=== PATIENT | male | born 1955 | race African-American/Black ===

== ENCOUNTER 2016-08-12 01:39 | Emergency (ER) | payer OTHER ==
[2016-08-12] MEDS ORDERED: Ondansetron HCl/PF 4 MG/2 ML Vial ONE (02:29)
[2016-08-12] MEDS ORDERED: Meclizine HCl 25 MG TAB ONE (02:29)
[2016-08-12 02:35] LABS: #Basophils 0.1 thou/uL (0.0-0.2); #Eosinphils 0.2 thou/uL (0.0-0.7); #Lymphocytes 2.5 thou/uL (1.20-3.40); #Monocytes 0.7 thou/uL (0.11-0.59); #Neutrophils 3.6 thou/uL (1.40-6.50); %Eosinophils 2.2 % (0.0-10.0); %Lymphocytes 35.4 % (21.0-51.0); %Neutrophils 51.4 % (42.0-75.0); Hemoglobin 15.9 g/dL (14.0-18.0); Mean Corpuscular HGB CONC 32.8 g/dL (32.0-36.0); Mean Corpuscular Hemoglobin 29.6 pg (27.0-31.0); Mean Corpuscular Volume 90.2 fl (80.0-94.0); Platelet Count 243 thou/uL (130-400); RBC Distribution Width 13.1 % (11.5-14.5); Red Blood Cell (RBC) Count 5.38 mill/uL (4.70-6.10)
[2016-08-12 02:54] LABS: ALT (SGPT) 41 U/L (0-55); AST (SGOT) 35 U/L (5-34); Albumin 4.1 g/dL (3.4-4.8); Alkaline Phosphatase 78 U/L (40-150); Anion Gap 16 mmol/L (10-20); BUN (Urea Nitrogen) 18 mg/dL (8.4-25.7); Bilirubin, Total 0.6 mg/dL (0.2-1.2); CK (CPK) 160 U/L (30-200); Calc. Creatinine Clearance 0 mL/min (70-130); Calcium 10.1 mg/dL (7.8-10.44); Carbon Dioxide 26 mmol/L (23-31); Chloride 100 mmol/L (98-107); Estimated GFR-MDRD 72; Globulin 3.4 g/dL (2.4-3.5); Glucose 111 mg/dL (80-115); Potassium 3.8 mmol/L (3.5-5.1); Protein, Total 7.5 g/dL (5.8-8.1); Sodium 138 mmol/L (136-145)
[2016-08-12 02:54] LABS: Bilirubin Negative (Negative); Blood, Urine Negative (Negative); Clarity Clear (Clear); Glucose, Urine (Dipstick) >=1000 mg/dL (Negative); Leukocyte Negative (Negative); Nitrite Negative (Negative); Protein, Urine (Dipstick) Negative (Neg-Trace); Specific Gravity, Urine 1.015 (1.005-1.030); pH, Urine 5.5 (5.0-9.0)
[2016-08-12 02:58] LABS: CKMB 1.5 ng/mL (0-6.6); Troponin I Less than 0.010 ng/mL (< 0.028)
--- NOTE | 2016-08-12 04:13 | ERRECORD ---
[facility] EMERGENCY RECORD HPI WEAK-DIZZY (02:23 LLDO) CHIEF COMPLAINT: Patient presents for evaluation of weakness, Patient presents for evaluation of dizziness, Patient presents for evaluation of lightheadedness, Denies mental status changes, Patient presents for evaluation of pt was driving from [place] to [place] and began feeling dizzy, sob and lightheaded. he stopped at a truck stop here in town and asked for the nearest hospital. says he was dizzy, lightheaded ans somewhat short of breath at that time. feels better now but still moderately dizzy when he moves. has not had this problem before. no trauma. denies any pain, uti or uri sx. HISTORIAN: History provided by patient, pt has a cardiac and diabetic hx and was concerned about further travel w/o being evaluated. LOCATION: Symptoms are generalized. QUALITY: Patient is alert and oriented to person, place and time, [place] coma score is 15. SEVERITY: Maximum severity of symptoms moderate, Currently symptoms are mild. TIME COURSE: Sudden onset of symptoms, Symptoms are improving, are constant. ASSOCIATED WITH: Associated with nausea. EXACERBATED BY: Patient's condition exacerbated by movement. RELIEVED BY: Patient's condition relieved by time. ROS CONSTITUTIONAL: Historian reports fatigue. (02:00 LLDO) EYES: Negative eye review of systems, Historian denies eye pain, denies eye redness, denies eye discharge. (02:02 LLDO) ENT: Negative ears, nose, throat review of systems, Historian denies otalgia, denies rhinorrhea, denies sinus pain, denies sore throat. (02:02 LLDO) CARDIOVASCULAR: Negative cardiovascular review of systems, Historian denies chest pain, no radiation, Historian denies diaphoresis, denies paroxysmal nocturnal dyspnea, denies syncope. (02:02 LLDO) RESPIRATORY: Historian reports shortness of breath. (02:00 LLDO) GI: Historian reports nausea. (02:00 LLDO) MUSCULOSKELETAL: Negative musculoskeletal review of systems, Historian denies arthralgias, denies fall, denies injury, denies myalgias. (02:02 LLDO) NEUROLOGIC: Historian reports dizziness. (02:00 LLDO) HEMO/LYMPHATIC: Normal hematologic/lymphatic system review, Historian denies abnormal blood clotting, denies gum bleeding, denies petechiae. (02:02 LLDO) ALLERGIC/IMMUNOLOGIC: Normal allergy/immunologic system review, Historian denies eczema, denies environmental allergies, denies food allergies. (02:02 LLDO) PSYCHIATRIC: Negative psychiatric review of systems, Historian denies alcohol abuse, denies anxiety, denies depression, denies drug &a-1R&a+25V*p+0X*[id number]*c202B*c15G*c2P*p-0X&a-25V&a+1R Name: Vipul Ryan : 1955 M61 MedRec: [id number] AcctNum: [id number] Prepared: FriAug 12, 2016 04:17 by Interface Page 1 of 4 pMD [facility] EMERGENCY RECORD abuse, denies hallucinations. (02:02 LLDO) NOTES: All systems reviewed, negative except as described above. (02:00 LLDO) PAST MEDICAL HISTORY MEDICAL HISTORY: Notes: htn, high cholesterol, dm. (01:50 JDEA) MALE SURGICAL HISTORY: stents x 4, pacemaker, back sx. (01:50 JDEA) PSYCHIATRIC HISTORY: No previous psychiatric history. (01:50 JDEA) SOCIAL HISTORY: Patient denies alcohol use, Patient denies drug use, Patient currently uses tobacco, smokes cigarettes, Lives at home, with family. (01:50 JDEA) NOTES: Nursing records reviewed, Agree with nursing records, Medication list reviewed. (02:02 LLDO) KNOWN ALLERGIES NKDA CURRENT MEDICATIONS atorvastatin: TABLET : Strength - 20 mg : ORAL Patient Dose: 20 mg Oral once a day (at bedtime). (01:50 JDEA) valsartan-hydrochlorothiazide: TABLET : Strength - 160 mg-25 mg : ORAL Patient Dose: 1 tab(s) Oral once a day. (01:51 JDEA) Eliquis: TABLET : Strength - 5 mg : ORAL Patient Dose: 1 tab(s) Oral 2 times a day (before meals). (01:52 JDEA) glipiZIDE-metformin: TABLET : Strength - 5 mg-500 mg : ORAL Patient Dose: 1 tab(s) Oral 2 times a day (before meals). (01:52 JDEA) Toprol XL: TABLET, EXTENDED RELEASE 24 HR : Strength - 100 mg : ORAL Patient Dose: 1 tab(s) Oral 2 times a day (before meals). (01:53 JDEA) Farxiga: TABLET : Strength - 10 mg : ORAL Patient Dose: 1 tab(s) Oral 2 times a day (before meals). (01:53 JDEA) VITAL SIGNS VITAL SIGNS: BP: 143/81, Pulse: 66, Resp: 18, Temp: 98.2 (Oral), Pain: 0, O2 sat: 97 on Room Air, Time: 08/12/2016 01:45. (01:45 JDEA) BP: 140/80, Pulse: 62, Resp: 18, Pain: 0, O2 sat: 96 on Room Air, Time: 08/12/2016 03:20. (03:20 JDEA) &a-1R&a+25V*p+0X*p4280M*c202B*c15G*c2P*p-0X&a-25V&a+1R Name: Vipul Ryan : 1955 M61 MedRec: [id number] AcctNum: [id number] Prepared: FriAug 12, 2016 04:17 by Interface Page 2 of 4 pMD [facility] EMERGENCY RECORD BP: 140/68, Pulse: 62, Resp: 20, Temp: 98.2, Pain: 0, O2 sat: 99 on RA, Time: 08/12/2016 04:11. (04:11 JDEA) PHYSICAL EXAM CONSTITUTIONAL: Vital signs reviewed, Patient afebrile, Pulse normal, Blood pressure normal, Respiratory rate normal, Patient appears non toxic, Patient appears pain free, Patient alert and oriented to person, place and time. (02:01 LLDO) HEAD: Head exam normal, Head exam included findings of head atraumatic, normocephalic. (02:02 LLDO) EYES: Eye exam normal, Eye exam included findings of eyelids normal to inspection, Pupils equally round and reactive to light, Extraocular muscles intact. (02:02 LLDO) ENT: ENT exam normal, Ear exam normal, Nose exam normal. (02:02 LLDO) NECK: Neck exam normal, Neck exam included findings of normal range of motion, Trachea midline, no meningeal signs, no tenderness. (02:02 LLDO) RESPIRATORY CHEST: PACEMAKER BUMP LEFT UPPER CHEST. (02:01 LLDO) CARDIOVASCULAR: Cardiovascular exam included findings of, rate normal, rhythm occasionally irregular, Heart sounds normal. (02:01 LLDO) ABDOMEN MALE: Abdominal exam normal, Abdominal exam included findings of abdomen nontender, Bowel sounds normal, no peritoneal signs. (02:02 LLDO) BACK: Back exam normal, Back exam included findings of normal inspection, range of motion normal. (02:02 LLDO) UPPER EXTREMITY: Upper extremity exam normal, Upper extremity exam included findings of inspection normal, Range of motion normal. (02:02 LLDO) LOWER EXTREMITY: Lower extremity exam normal, Lower extremity exam included findings of inspection normal, Range of motion normal. (02:02 LLDO) NEURO: Neuro exam normal, Neuro exam findings include patient oriented to person, place and time, Speech normal, [place] coma scale 15. (02:02 LLDO) SKIN: Skin exam normal, Skin exam included findings of skin warm, dry, and normal in color, no rash. (02:02 LLDO) PSYCHIATRIC: Psychiatric exam normal, Psychiatric exam included findings of patient oriented to person place and time, Normal affect, Judgment normal. (02:02 LLDO) MEDICATION ADMINISTRATION SUMMARY Drug Name: Zofran intravenous, Dose Ordered: 8 mg, Route: IV Push, Status: Given, Time: 08/12/2016, Drug Name: Antivert/25, Dose Ordered: 25 mg, Route: Oral, Status: Given, Time: 08/12/2016, Detailed record available in Medication Service section. &a-1R&a+25V*p+0X*[id number]*c202B*c15G*c2P*p-0X&a-25V&a+1R Name: Vipul Ryan Kavitha : 1955 M61 MedRec: [id number] AcctNum: [id number] Prepared: FriAug 12, 2016 04:17 by Interface Page 3 of 4 pMD [facility] EMERGENCY RECORD PROBLEM LIST No recorded problems DIAGNOSIS (04:02 LLDO) FINAL: PRIMARY: LABYRINTHITIS UNSPECIFIED EAR. PRESCRIPTION (04:03 LLDO) Antivert/25: TABLET : 25 mg : ORAL : Quantity: 1-2 Unit: tab(s) Route: ORAL Schedule: every 6 hours PRN Dispense: 15 Unit: tab(s) May substitute. Refills: 1 . NOTES: No Refills. DISPOSITION PATIENT: Disposition Type: Discharge, Disposition: *Discharge Home. (04:02 JUANY) Patient left the department. (04:12 ED) Bello: ED=JANELLE Yoder, Janel HARRINGTON=MD Evaristo, Jose R &a-1R&a+25V*p+0X*[id number]*c202B*c15G*c2P*p-0X&a-25V&a+1R Name: RyanVipul : 1955 M61 MedRec: [id number] AcctNum: [id number] Prepared: FriAug 12, 2016 04:17 by Interface Page 4 of 4 pMD MTDD
--- NOTE | 2016-08-12 04:13 | PICIS ---
[facility] EMERGENCY RECORD TRIAGE (FriAug 12, 2016 01:47 JDEA) TRIAGE NOTES: pt states that he is dizzy and would like to be checked out so he can go to [place], states this has been going on since today. (FriAug 12, 2016 01:47 JDEA) PATIENT: NAME: Vipul Ryan, AGE: 61, GENDER: male, : [facility] 1955, TIME OF GREET: FriAug 12, 2016 01:40, PREFERRED LANGUAGE: French, ETHNICITY: Not or , ECODE BILLING MAP: [facility], SSN: [id number], Zip Code: [address], KG WEIGHT: 100.70, PHONE: , , , PERSON ID: [id number], PCP: out of town. (FriAug 12, 2016 01:47 JDEA) COMPLAINT: DIZZINESS. (FriAug 12, 2016 01:47 JDEA) ADMISSION: URGENCY: 2 Emergent, ADMISSION SOURCE: Home, TRANSPORT: Walk-in, BED: TRIAGE. (FriAug 12, 2016 01:47 JDEA) IMMUNIZATIONS: Flu vaccine not up to date, Tetanus immunization up to date, Pneumococcal vaccine not up to date. (01:50 JDEA) TRIAGE SCREENING: Patient denies suicidal ideation, Patient denies presence of domestic violence. (01:50 JDEA) PROVIDERS: TRIAGE NURSE: Janel Yoder RN. (FriAug 12, 2016 01:47 JDEA) VITAL SIGNS: BP 143/81, Pulse 66, Resp 18, Temp 98.2, (Oral), Pain 0, O2 Sat 97, on Room Air, Time 08/12/2016 01:45. (01:45 JDEA) KNOWN ALLERGIES NKDA CURRENT MEDICATIONS atorvastatin: TABLET : Strength - 20 mg : ORAL Patient Dose: 20 mg Oral once a day (at bedtime). (01:50 JDEA) valsartan-hydrochlorothiazide: TABLET : Strength - 160 mg-25 mg : ORAL Patient Dose: 1 tab(s) Oral once a day. (01:51 JDEA) Eliquis: TABLET : Strength - 5 mg : ORAL Patient Dose: 1 tab(s) Oral 2 times a day (before meals). (01:52 JDEA) glipiZIDE-metformin: TABLET : Strength - 5 mg-500 mg : ORAL Patient Dose: 1 tab(s) Oral 2 times a day (before meals). (01:52 JDEA) Toprol XL: TABLET, EXTENDED RELEASE 24 HR : Strength - 100 mg : ORAL Patient Dose: 1 tab(s) Oral 2 times a day (before meals). (01:53 JDEA) Farxiga: TABLET : Strength - 10 mg : ORAL Patient Dose: 1 tab(s) Oral 2 times a day (before meals). &a-1R&a+25V*p+0X*c0005M*c202B*c15G*c2P*p-0X&a-25V&a+1R Name: Vipul Ryan : 1955 M61 MedRec: [id number] AcctNum: [id number] Prepared: FriAug 12, 2016 04:24 by Interface Page 1 of 11 pMD [facility] EMERGENCY RECORD (01:53 JDEA) VITAL SIGNS VITAL SIGNS: BP: 143/81, Pulse: 66, Resp: 18, Temp: 98.2 (Oral), Pain: 0, O2 sat: 97 on Room Air, Time: 08/12/2016 01:45. (01:45 JDEA) BP: 140/80, Pulse: 62, Resp: 18, Pain: 0, O2 sat: 96 on Room Air, Time: 08/12/2016 03:20. (03:20 JDEA) BP: 140/68, Pulse: 62, Resp: 20, Temp: 98.2, Pain: 0, O2 sat: 99 on RA, Time: 08/12/2016 04:11. (04:11 JDEA) NURSING ASSESSMENT: CARDIOVASCULAR (02:39 JDEA) CONSTITUTIONAL: Complex assessment performed, Patient arrives ambulatory, Gait steady, History obtained from patient, Patient appears comfortable, Patient cooperative, Patient alert, Oriented to person, place and time, Skin warm, Skin dry, Skin normal in color, Mucous membranes pink, Mucous membranes moist, Patient complains of dizziness, pt in, states that he has been having episodes of dizziness since today, states that he is unsure of his blood glucose level and has cardiac stents and would like to be evaluated and then discharged to finish his drive to [facility]. states he is not in pain, however he feels unwell. PAIN: denies pain at this time. CARDIOVASCULAR: Cardiovascular assessment findings include heart rate normal, Heart rhythm, paced, Heart sounds normal, S1, S2, Left radial pulse +3(easily palpated, considered normal), Right radial pulse +3(easily palpated, considered normal), Left dorsalis pedis pulse +3(easily palpated, considered normal), Right dorsalis pedis pulse +3(easily palpated, considered normal). RESPIRATORY/CHEST: Breath sounds clear, Respiratory assessment findings include respiratory effort easy, Respirations regular, Conversing normally, Neck and chest exam findings include trachea midline, Chest expansion equal, Chest movement symmetrical, no signs of distress, no associated cough noted, no associated fever. NOTES: Patient tolerated procedure well. NURSING PROCEDURE: BUFFING WHEEL OPERATOR (02:38 JDEA) PATIENT IDENTIFIER: Patient actively involved in identification process, Patient's identity verified by hospital ID bracelet. BUFFING WHEEL OPERATOR: Cardiac monitoring indicated for er indication, Patient placed on monitoring manager, Patient placed on non-invasive blood pressure monitor, Patient placed on continuous pulse oximetry. FOLLOW-UP: After procedure, alarms set and on. NOTES: Patient tolerated procedure well. NURSING PROCEDURE: DISCHARGE NOTE (04:11 JDEA) DISCHARGE: Patient discharged to home, ambulating without assistance, driving self, unaccompanied, Summary of Care printed/ provided, Patient requested and was provided an electronic copy of Discharge Instructions, Transition record given to patient, Discharge instructions given to patient, Simple or moderate discharge teaching &a-1R&a+25V*p+0X*r6125G*c202B*c15G*c2P*p-0X&a-25V&a+1R Name: Vipul Ryan Kavitha : 1955 M61 MedRec: [id number] AcctNum: [id number] Prepared: FriAug 12, 2016 04:24 by Interface Page 2 of 11 pMD [facility] EMERGENCY RECORD performed, Prescriptions given and instructions on side effects given, Above person(s) verbalized understanding of discharge instructions and follow-up care, Patient treated and evaluated by physician. BELONGINGS: Belongings and valuables with patient at time of discharge include:, Belongings remain with patient. VITAL SIGNS: BP: 140, / 68, Pulse: 62, Resp: 20, Temp: 98.2, Pain: 0, O2 sat: 99, on: RA, Time: 0411. NURSING PROCEDURE: EKG CHART (02:38 JDEA) PATIENT IDENTIFIER: Patient actively involved in identification process, Patient's identity verified by hospital ID bracelet. EKG: EKG indicated for er indication, 12 lead EKG performed on the left chest, done by addison, first EKG. FOLLOW-UP: After procedure, EKG for interpretation given to Dr. md loera. NOTES: Patient tolerated procedure well. NURSING PROCEDURE: ENT (02:39 JDEA) PATIENT IDENTIFIER: Patient actively involved in identification process, Patient's identity verified by hospital ID bracelet. ENT: Nasal swab collected, labeled in the presence of the patient and sent to lab for testing of, influenza A, influenza B, flu, collected by addison. FOLLOW-UP: After procedure, no further bleeding from nose. NOTES: Patient tolerated procedure well. NURSING PROCEDURE: IV (02:38 JDEA) PATIENT IDENITIFIER: Patient actively involved in identification process, Patient's identity verified by hospital ID bracelet. IV SITE 1: IV therapy indicated for hydration, IV therapy indicated for medication administration, IV established, to the right hand, using a 20 gauge catheter, in one attempt, Saline lock established, Flushed with normal saline (mls): 10mls. FOLLOW-UP SITE 1: After procedure, 2x3 ensure dressing applied, After procedure, no drainage at IV site, After procedure, no swelling at IV site, After procedure, no redness at IV site. NOTES: Patient tolerated procedure well. NURSING PROCEDURE: NURSE NOTES NURSES NOTES: Notes: lab paged at this time to draw. (02:38 JDEA) Notes: pt in bed, blanket provided to pt, made aware currently awaiting lab results. lab paged at this time, states sending lab results in computer. (03:45 JDEA) NURSING PROCEDURE: URINE COLLECTION (02:41 JDEA) PATIENT IDENTIFIER: Patient actively involved in identification process, Patient's identity verified by hospital ID bracelet. URINE COLLECTION MALE: Urine collection indicated for er &a-1R&a+25V*p+0X*h3232W*c202B*c15G*c2P*p-0X&a-25V&a+1R Name: Vipul Ryan : 1955 M61 MedRec: [id number] AcctNum: [id number] Prepared: FriAug 12, 2016 04:24 by Interface Page 3 of 11 [facility] EMERGENCY RECORD indication, Notes: urinal to pt. NOTES: Patient tolerated procedure well. ORDER DETAILS Order Name: B type Natriuretic Peptide, Status: Active, Time: 02:06 08/12/2016, User: JUANY, - Ordered for: MD Loera Lloyd, - Entered by: MD Loera Lloyd - [facility] Aug 12, 2016 02:06, - Quantity: 1, Order Name: BLOOD GLUCOSE MONITOR, Status: Done, Time: 02:10 08/12/2016, User: ED, - Ordered for: MD Loera Lloyd, - Entered by: MD Loera Lloyd - [facility] Aug 12, 2016 02:05, - Quantity: 1, Order Name: BUFFING WHEEL OPERATOR ED, Status: Done, Time: 02:10 08/12/2016, User: ED, - Ordered for: MD Loera Lloyd, - Entered by: MD Loera Lloyd - [facility] Aug 12, 2016 02:06, - Quantity: 1, Order Name: Cardiac Profile w/CKMB & Troponin - I, Status: Active, Time: 02:06 08/12/2016, User: JUANY, - Ordered for: MD Loera Lloyd, - Entered by: MD Loera Lloyd - [facility] Aug 12, 2016 02:06, - Quantity: 1, Order Name: CBC with Differential, Status: Active, Time: 02:06 08/12/2016, User: JUANY, - Ordered for: MD Loera Lloyd, - Entered by: MD Loera Lloyd - [facility] Aug 12, 2016 02:06, - Quantity: 1, Order Name: CK (CPK), Status: Active, Time: 02:06 08/12/2016, User: JUANY, - Ordered for: MD Loera Lloyd, - Entered by: MD Loera Lloyd - [facility] Aug 12, 2016 02:06, - Quantity: 1, Order Name: Comprehensive Metabolic Panel, Status: Active, Time: 02:06 08/12/2016, User: JUANY, - Ordered for: MD Loera Lloyd, - Entered by: MD Loera Lloyd - [facility] Aug 12, 2016 02:06, - Quantity: 1, Order Name: Culture, Urine, Status: Active, Time: 02:06 08/12/2016, User: JUANY, - Ordered for: MD Loera Lloyd, - Entered by: MD Loera Lloyd - [facility] Aug 12, 2016 02:06, - Quantity: 1, Order Name: EKG 12 Lead in Emergency Room, Status: Active, Time: 02:06 08/12/2016, User: JUANY, - Ordered for: MD Loera Lloyd, - Entered by: MD Loera Lloyd - [facility] Aug 12, 2016 02:06, - Quantity: 1, &a-1R&a+25V*p+0X*l1735G*c202B*c15G*c2P*p-0X&a-25V&a+1R Name: Vipul Ryan : 1955 M61 MedRec: [id number] AcctNum: [id number] Prepared: FriAug 12, 2016 04:24 by Interface Page 4 of 11 [facility] EMERGENCY RECORD Order Name: Influenza A&B Ag Screen, Status: Active, Time: 02:08 08/12/2016, User: JUANY, - Ordered for: MD Loera Lloyd, - Entered by: MD Loera Lloyd - [facility] Aug 12, 2016 02:08, - Quantity: 1, Order Name: SALINE LOCK, Status: Done, Time: 02:27 08/12/2016, User: ED, - Ordered for: MD Loera Lloyd, - Entered by: MD Loera Lloyd - [facility] Aug 12, 2016 02:06, - Quantity: 1, Order Name: Urinalysis w/ Rflx Microscopic, Status: Active, Time: 02:06 08/12/2016, User: LL, - Ordered for: MD Loera Lloyd, - Entered by: MD Loera Lloyd - FriAug 12, 2016 02:06, - Quantity: 1. MEDICATION ADMINISTRATION SUMMARY Drug Name: Zofran intravenous, Dose Ordered: 8 mg, Route: IV Push, Status: Given, Time: 08/12/2016, Drug Name: Antivert/25, Dose Ordered: 25 mg, Route: Oral, Status: Given, Time: 08/12/2016, Detailed record available in Medication Service section. MEDICATION SERVICE ( LL) Antivert/25: Order: Antivert/25 (meclizine HCl) - Dose: 25 mg : Oral Schedule: Now Ordered by: Jose R Loera MD Entered by: Jose R Loera MD FriAug 12, 2016 02:11 , Acknowledged by: Janel Yoder RN FriAug 12, 2016 02:27 Documented as given by: Janel Yoder RN FriAug 12, 2016 02:33 Patient, Medication, Dose, Route and Time verified prior to administration. Amount given: 25mg, Site: Medication administered P.O., Correct patient, time, route, dose and medication confirmed prior to administration, Patient advised of actions and side-effects prior to administration, Allergies confirmed and medications reviewed prior to administration, Patient in position of comfort, Side rails up, Cart in lowest position, Call light in reach. Zofran intravenous: Order: Zofran intravenous (ondansetron HCl) - Dose: 8 mg : IV Push Schedule: Now Ordered by: Jose R Loera MD Entered by: Jose R Loera MD FriAug 12, 2016 02:10 , Acknowledged by: Janel Yoder, JANELLE FriAug 12, 2016 02:27 Documented as given by: Janel Yoder RN FriAug 12, 2016 02:33 Patient, Medication, Dose, Route and Time verified prior to administration. Amount given: 8mg, IV SITE #1 IVP, initial medication, Slowly, &a-1R&a+25V*p+0X*x5866H*c202B*c15G*c2P*p-0X&a-25V&a+1R Name: Vipul Ryan : 1955 M61 MedRec: [id number] AcctNum: [id number] Prepared: FriAug 12, 2016 04:24 by Interface Page 5 of 11 pMD [facility] EMERGENCY RECORD Connections checked prior to administration, Line traced prior to administration, Catheter placement confirmed via flush prior to administration, IV site without signs or symptoms of infiltration during medication administration, No swelling during administration, No drainage during administration, IV flushed after administration, Correct patient, time, route, dose and medication confirmed prior to administration, Patient advised of actions and side-effects prior to administration, Allergies confirmed and medications reviewed prior to administration, Patient in position of comfort, Side rails up, Cart in lowest position, Call light in reach. HPI WEAK-DIZZY (02:23 LLDO) CHIEF COMPLAINT: Patient presents for evaluation of weakness, Patient presents for evaluation of dizziness, Patient presents for evaluation of lightheadedness, Denies mental status changes, Patient presents for evaluation of pt was driving from [place] to [place] and began feeling dizzy, sob and lightheaded. he stopped at a truck stop here in [facility] and asked for the nearest hospital. says he was dizzy, lightheaded ans somewhat short of breath at that time. feels better now but still moderately dizzy when he moves. has not had this problem before. no trauma. denies any pain, uti or uri sx. HISTORIAN: History provided by patient, pt has a cardiac and diabetic hx and was concerned about further travel w/o being evaluated. LOCATION: Symptoms are generalized. QUALITY: Patient is alert and oriented to person, place and time, Scott coma score is 15. SEVERITY: Maximum severity of symptoms moderate, Currently symptoms are mild. TIME COURSE: Sudden onset of symptoms, Symptoms are improving, are constant. ASSOCIATED WITH: Associated with nausea. EXACERBATED BY: Patient's condition exacerbated by movement. RELIEVED BY: Patient's condition relieved by time. ROS CONSTITUTIONAL: Historian reports fatigue. (02:00 LLDO) EYES: Negative eye review of systems, Historian denies eye pain, denies eye redness, denies eye discharge. (02:02 LLDO) ENT: Negative ears, nose, throat review of systems, Historian denies otalgia, denies rhinorrhea, denies sinus pain, denies sore throat. (02:02 LLDO) CARDIOVASCULAR: Negative cardiovascular review of systems, Historian denies chest pain, no radiation, Historian denies diaphoresis, denies paroxysmal nocturnal dyspnea, denies syncope. (02:02 LLDO) RESPIRATORY: Historian reports shortness of breath. (02:00 LLDO) GI: Historian reports nausea. (02:00 LLDO) MUSCULOSKELETAL: Negative musculoskeletal review of systems, &a-1R&a+25V*p+0X*a3467W*c202B*c15G*c2P*p-0X&a-25V&a+1R Name: Vipul Ryan : 1955 M61 MedRec: [id number] AcctNum: [id number] Prepared: FriAug 12, 2016 04:24 by Interface Page 6 of 11 pMD [facility] EMERGENCY RECORD Historian denies arthralgias, denies fall, denies injury, denies myalgias. (02:02 LLDO) NEUROLOGIC: Historian reports dizziness. (02:00 LLDO) HEMO/LYMPHATIC: Normal hematologic/lymphatic system review, Historian denies abnormal blood clotting, denies gum bleeding, denies petechiae. (02:02 LLDO) ALLERGIC/IMMUNOLOGIC: Normal allergy/immunologic system review, Historian denies eczema, denies environmental allergies, denies food allergies. (02:02 LLDO) PSYCHIATRIC: Negative psychiatric review of systems, Historian denies alcohol abuse, denies anxiety, denies depression, denies drug abuse, denies hallucinations. (02:02 LLDO) NOTES: All systems reviewed, negative except as described above. (02:00 LLDO) PAST MEDICAL HISTORY MEDICAL HISTORY: Notes: htn, high cholesterol, dm. (01:50 JDEA) MALE SURGICAL HISTORY: stents x 4, pacemaker, back sx. (01:50 JDEA) PSYCHIATRIC HISTORY: No previous psychiatric history. (01:50 JDEA) SOCIAL HISTORY: Patient denies alcohol use, Patient denies drug use, Patient currently uses tobacco, smokes cigarettes, Lives at home, with family. (01:50 JDEA) NOTES: Nursing records reviewed, Agree with nursing records, Medication list reviewed. (02:02 LLDO) PHYSICAL EXAM CONSTITUTIONAL: Vital signs reviewed, Patient afebrile, Pulse normal, Blood pressure normal, Respiratory rate normal, Patient appears non toxic, Patient appears pain free, Patient alert and oriented to person, place and time. (02:01 LLDO) HEAD: Head exam normal, Head exam included findings of head atraumatic, normocephalic. (02:02 LLDO) EYES: Eye exam normal, Eye exam included findings of eyelids normal to inspection, Pupils equally round and reactive to light, Extraocular muscles intact. (02:02 LLDO) ENT: ENT exam normal, Ear exam normal, Nose exam normal. (02:02 LLDO) NECK: Neck exam normal, Neck exam included findings of normal range of motion, Trachea midline, no meningeal signs, no tenderness. (02:02 LLDO) RESPIRATORY CHEST: PACEMAKER BUMP LEFT UPPER CHEST. (02:01 LLDO) CARDIOVASCULAR: Cardiovascular exam included findings of, rate normal, rhythm occasionally irregular, Heart sounds normal. (02:01 LLDO) ABDOMEN MALE: Abdominal exam normal, Abdominal exam included findings of abdomen nontender, Bowel sounds normal, no peritoneal signs. (02:02 LLDO) &a-1R&a+25V*p+0X*o7085I*c202B*c15G*c2P*p-0X&a-25V&a+1R Name: Vipul Ryan : 1955 M61 MedRec: [id number] AcctNum: [id number] Prepared: FriAug 12, 2016 04:24 by Interface Page 7 of 11 pMD [facility] EMERGENCY RECORD BACK: Back exam normal, Back exam included findings of normal inspection, range of motion normal. (02:02 LLDO) UPPER EXTREMITY: Upper extremity exam normal, Upper extremity exam included findings of inspection normal, Range of motion normal. (02:02 LLDO) LOWER EXTREMITY: Lower extremity exam normal, Lower extremity exam included findings of inspection normal, Range of motion normal. (02:02 LLDO) NEURO: Neuro exam normal, Neuro exam findings include patient oriented to person, place and time, Speech normal, Scott coma scale 15. (02:02 LLDO) SKIN: Skin exam normal, Skin exam included findings of skin warm, dry, and normal in color, no rash. (02:02 LLDO) PSYCHIATRIC: Psychiatric exam normal, Psychiatric exam included findings of patient oriented to person place and time, Normal affect, Judgment normal. (02:02 LLDO) EVENTS TRANSFER: Triage to Emergency Triage. (FriAug 12, 2016 01:47 JDEA) Emergency Triage to Main ED -05. (01:50 JDEA) Removed from Emergency Main ED -05. (04:12 JDEA) PROBLEM LIST No recorded problems DIAGNOSIS (04:02 LLDO) FINAL: PRIMARY: LABYRINTHITIS UNSPECIFIED EAR. DISPOSITION PATIENT: Disposition Type: Discharge, Disposition: *Discharge Home. (04:02 LLDO) Patient left the department. (04:12 JDEA) INSTRUCTION (04:04 LLDO) DISCHARGE: LABYRINTHITIS. FOLLOWUP: Follow up with Primary Care Physician as needed. SPECIAL: Follow-up with your PCP. PRESCRIPTION (04:03 LLDO) Antivert/25: TABLET : 25 mg : ORAL : Quantity: 1-2 Unit: tab(s) Route: ORAL Schedule: every 6 hours PRN Dispense: 15 Unit: tab(s) May substitute. Refills: 1 . NOTES: No Refills. IMAGING *EKG: Image captured from scanner. (02:27 JDEA) EKG OVERREAD: Image captured from scanner. (04:03 JDEA) *SUPPLY CHARGE SHEET: Image captured from scanner. (04:04 JDEA) &a-1R&a+25V*p+0X*x5531V*c202B*c15G*c2P*p-0X&a-25V&a+1R Name: Vipul Ryan : 1955 M61 MedRec: [id number] AcctNum: [id number] Prepared: FriAug 12, 2016 04:24 by Interface Page 8 of 11 pMD [facility] EMERGENCY RECORD *DISCHARGE INSTRUCTIONS RECEIPT: Image captured from scanner. (04:12 JDEA) ADMIN (04:04 LLDO) DIGITAL SIGNATURE: MD Loera Lloyd. RESULTS (04:00 ADEA) LABORATORY: CK (CPK) Collection DT: FriAug 12, 2016 03:10, CK (CPK) 160 U/L, Range (30-200). Comprehensive Metabolic Panel Collection DT: FriAug 12, 2016 03:10, Sodium 138 mmol/L, Range (136-145), Potassium 3.8 mmol/L, Range (3.5-5.1), Chloride 100 mmol/L, Range (98-107), Carbon Dioxide 26 mmol/L, Range (23-31), Anion Gap 16 mmol/L, Range (10-20), BUN (Urea Nitrogen) 18 mg/dL, Range (8.4-25.7), Creatinine 1.24 mg/dL, Range (0.7-1.3), Estimated GFR-MDRD 72 , Reference Range for Estimated GFR: Greater than 90, mL/min/1.73 m2 NOTE: The MDRD equation has not been validated for use, with the elderly (over 70 years of age), women, patients with, serious comorbid condition or persons with extremes of body size, muscle, mass, or nutritional status. , Glucose 111 mg/dL, Range (80-115), Calcium 10.1 mg/dL, Range (7.8-10.44), Bilirubin, Total 0.6 mg/dL, Range (0.2-1.2), Protein, Total 7.5 g/dL, Range (5.8-8.1), NOTE: Plasma values are generally 0.3 to 0.5 g/dL higher than serum values, due to the presence of fibrinogen. , Albumin 4.1 g/dL, Range (3.4-4.8), Globulin 3.4 g/dL, Range (2.4-3.5), Alb/Glob Ratio 1.2 g/dL, Range (1.2-2.2), Alkaline Phosphatase 78 U/L, Range (40-150), *AST (SGOT) 35 - H U/L, Range (5-34), ALT (SGPT) 41 U/L, Range (0-55). CBC with Differential Collection DT: FriAug 12, 2016 03:10, White Blood Cell (WBC) Count 7.0 thou/uL, Range (4.8-10.8), Red Blood Cell (RBC) Count 5.38 mill/uL, Range (4.70-6.10), Hemoglobin 15.9 g/dL, Range (14.0-18.0), Hematocrit 48.5 %, Range (42.0-52.0), Mean Corpuscular Volume 90.2 fl, Range (80.0-94.0), Mean Corpuscular Hemoglobin 29.6 pg, Range (27.0-31.0), Mean Corpuscular HGB CONC 32.8 g/dL, Range (32.0-36.0), RBC Distribution Width 13.1 %, Range (11.5-14.5), Platelet Count 243 thou/uL, Range (130-400), Mean Platelet Volume 8.0 fL, Range (7.4-10.4), %Neutrophils 51.4 %, Range (42.0-75.0), %Lymphocytes 35.4 %, Range (21.0-51.0), &a-1R&a+25V*p+0X*g3656R*c202B*c15G*c2P*p-0X&a-25V&a+1R Name: Vipul Ryan : 1955 M61 MedRec: [id number] AcctNum: [id number] Prepared: FriAug 12, 2016 04:24 by Interface Page 9 of 11 pMD [facility] EMERGENCY RECORD %Monocytes 10.0 %, Range (0.0-10.0), %Eosinophils 2.2 %, Range (0.0-10.0), %Basophils 1.0 %, Range (0.0-1.0), #Neutrophils 3.6 thou/uL, Range (1.40-6.50), #Lymphocytes 2.5 thou/uL, Range (1.20-3.40), *#Monocytes 0.7 - H thou/uL, Range (0.11-0.59), #Eosinphils 0.2 thou/uL, Range (0.0-0.7), #Basophils 0.1 thou/uL, Range (0.0-0.2). B type Natriuretic Peptide Collection DT: FriAug 12, 2016 03:10, B type Natriuretic Peptide 13.2 pg/mL, Range (0-100). Cardiac Profile w/CKMB & TropI Collection DT: FriAug 12, 2016 03:10, CKMB 1.5 ng/mL, Range (0-6.6), Troponin I Less than 0.010 ng/mL, Range (< 0.028), Reference Range , 0.00 - 0.028 ng/mL Negative 0.029 - 0.29 ng/mL , Indeterminate Greater or Equal to 0.3 ng/mL Strongly suggests [place] , . MICROBIOLOGY: Influenza A&B Ag Screen: [id number] Collection DT: FriAug 12, 2016 03:09, See comment below , @ ER ROOM#: [id number] Source: Nasal swab Spec Desc: , Influenza A Antigen: NEGATIVE for the , presence of , INFLUENZA A Antigen , Influenza B Antigen: NEGATIVE for the , presence of , INFLUENZA B Antigen , The rapid Flu A&B test can distinguish between influenza A , Influenza A&B Ag Screen See comment below , and B viruses, but it does not differentiate influenza , Influenza A&B Ag Screen See comment below , subtypes. , Influenza A&B Ag Screen See comment below , Influenza A&B Ag Screen See comment below , Influenza A&B Ag Screen See comment below , Influenza A&B Ag Screen See comment below , characteristics of this device with human specimens infected , Influenza A&B Ag Screen See comment below , with the 2008 H1N1 influenza virus have not been , Influenza A&B Ag Screen See comment below , established. For example: this test cannot distinguish , Influenza A&B Ag Screen See comment below , influenza infections caused by novel H1N1 influenza A , Influenza A&B Ag Screen See comment below , viruses versus seasonal influenza A viruses. , Influenza A&B Ag Screen See comment below , , Influenza A&B Ag Screen See comment below , A negative result does not exclude influenza virus , &a-1R&a+25V*p+0X*f7440L*c202B*c15G*c2P*p-0X&a-25V&a+1R Name: Vipul Ryan : 1955 M61 MedRec: [id number] AcctNum: [id number] Prepared: FriAug 12, 2016 04:24 by Interface Page 10 of 11 pMD [facility] EMERGENCY RECORD Influenza A&B Ag Screen See comment below , infection; therefore, if more conclusive testing is desired, , Influenza A&B Ag Screen See comment below , follow up confirmatory testing is warranted., Influenza A&B Ag Screen See comment below . LABORATORY: Urinalysis w/ Rflx Microscopic Collection DT: FriAug 12, 2016 03:00, See comment below , Comment please do micro , Color Yellow , Range (Yellow), URINE SAMPLE RAN TWICE. GLUCOSE IS =>1000 mg/dL, Clarity Clear , Range (Clear), Specific [place], Urine 1.015 , Range (1.005-1.030), pH, Urine 5.5 , Range (5.0-9.0), Leukocyte Negative , Range (Negative), Nitrite Negative , Range (Negative), Protein, Urine (Dipstick) Negative mg/dL, Range (Neg-Trace), *Glucose, Urine (Dipstick) >=1000 - H mg/dL, Range (Negative), Ketone, Urine Negative mg/dL, Range (Negative), Urobilinogen 1.0 mg/dL, Range (0.2-1.0), Bilirubin Negative , Range (Negative), Blood, Urine Negative , Range (Negative). Accuchek Collection DT: FriAug 12, 2016 02:16, *Accuchek 122 - H mg/dL, Range (70-110). Bello: TAQUERIA=JANELLE Yoder, Santy WARD=JANELLE Yoder, Janel HARRINGTON=MD Evaristo, Jose R &a-1R&a+25V*p+0X*[id number]*c202B*c15G*c2P*p-0X&a-25V&a+1R Name: Vipul Ryan : 1955 M61 MedRec: [id number] AcctNum: [id number] Prepared: FriAug 12, 2016 04:24 by Interface Page 11 of 11 D [facility] MEDICATION RECONCILIATION You were seen in the Emergency Department on: FriAug 12, 2016 KNOWN ALLERGIES NKDA MEDICATIONS GIVEN WHILE IN THE EMERGENCY DEPARTMENT Zofran intravenous (ondansetron HCl) - Dose: 8 milligram(s) : IV Push Antivert/25 (meclizine HCl) - Dose: 25 milligram(s) : Oral HOME MEDICATIONS CONTINUE PRESCRIBED atorvastatin : TABLET : Strength - 20 mg : ORAL Continue as prescribed Patient had been takin mg Oral once a day (at bedtime). Eliquis : TABLET : Strength - 5 mg : ORAL Continue as prescribed Patient had been takin tab(s) Oral 2 times a day (before meals). Farxiga : TABLET : Strength - 10 mg : ORAL Continue as prescribed Patient had been takin tab(s) Oral 2 times a day (before meals). glipiZIDE-metformin : TABLET : Strength - 5 mg-500 mg : ORAL Continue as prescribed Patient had been takin tab(s) Oral 2 times a day (before meals). Toprol XL : TABLET, EXTENDED RELEASE 24 HR : Strength - 100 mg : ORAL Continue as prescribed Patient had been takin tab(s) Oral 2 times a day (before meals). valsartan-hydrochlorothiazide : TABLET : Strength - 160 mg-25 mg : ORAL Continue as prescribed Patient had been takin tab(s) Oral once a day. Notes from the emergency department Reviewed with patient &a-1R&a+25V*p+0X*[id number]*c202B*c15G*c2P*p-0X&a-25V&a+1R Name: Vipul Ryan : 1955 M61 MedRec: [id number] AcctNum: [id number] Prepared: FriAug 12, 2016 04:24 by Interface pMD [facility] MEDICATION RECONCILIATION PRESCRIPTIONS (1) &a-1R&a+25V*p+0X*[id number]*c202B*c15G*c2P*p-0X&a-25V&a+1R Name: Vipul Ryan Kavitha : 1955 M61 MedRec: [id number] AcctNum: [id number] Prepared: FriAug 12, 2016 04:24 by Interface [facility]
== END 2016-08-12 04:11 | disposition home or self-care (01) ==
LOC: MADERS 01:39
DX: H83.09 Labyrinthitis, unspecified ear (principal); I10 Essential (primary) hypertension; E78.00 Pure hypercholesterolemia, unspecified; E11.9 Type 2 diabetes mellitus without complications; F17.210 Nicotine dependence, cigarettes, uncomplicated
CPT/HCPCS: 36416; 80053; 81003; 82553; 83880; 84484; 85025; 87086; 93005; 96374; J2405